=== PATIENT | female | born 1990 | race Caucasian/White ===

== ENCOUNTER 2018-03-07 11:10 | Outpatient (CLI) | payer MEDICAID, SELFPAY ==
--- NOTE | 2018-03-07 10:02 | DI.RAD_ITS ---
SYMPTOM/DIAGNOSIS: RECURRENT PAIN RT SIDE, NO TRAUMA, M25.531 RIGHT WRIST: Three views. The bones are normally mineralized. The articular surfaces are well maintained. The soft tissues are unremarkable. IMPRESSION: Negative right wrist.
== END 2018-03-07 11:30 ==
PROVIDERS: PCP Family Medicine; Visit Provider Family Medicine
DX: M25.531 Pain in right wrist (principal)
CPT/HCPCS: 73110

== ENCOUNTER 2018-04-08 13:00 | Emergency (ER) | payer MEDICAID, SELFPAY ==
[2018-04-08 13:31] VITALS: BP 136/87; PULSE 97; RESP 16; TEMP 36.4; O2SAT 97
--- NOTE | 2018-04-08 15:01 | DI.RAD_ITS ---
SYMPTOMS/DIAGNOSIS: RIGHT WRIST PAIN AND REDUCED RANGE OF MOTION X 1 MONTH, NO TRAUMA RIGHT WRIST: Three views. No acute bone or joint abnormality identified. The articular surfaces are well maintained. The soft tissues are unremarkable. IMPRESSION: No acute abnormality.
--- NOTE | 2018-04-08 15:03 | ED.GENADUL_ITS ---
Discharge Plan Disposition Patient Disposition: HOME Condition: Stable Discharge Details Chief Complaint: Orthopedic Clinical Impression: Right wrist pain Primary Care Provider: Nasrin Damian ED Provider: Nazanin Moreira Home Meds and New Rx's Prescriptions: Continued nabumetone 750 mg tablet 750 mg PO BID Qty: 60 RF: 2 cannabidiol (CBD) extract 100 mg/mL solution PO RF: 0 Latuda 20 MG tablet 20 mg PO DAILY RF: 0 melatonin 10 mg tablet, sublingual 10 mg PO HS Qty: 90 RF: 3 prazosin 1 mg capsule 1 mg PO DAILY RF: 0 Discharge Instructions Instructions: Arthralgia (ED) Additional Instructions: Please return immediately to the emergency department if you develop any new or worsening symptoms or if you become otherwise concerned. It is extremely important that you make an appointment to be seen by an orthopedic doctor and also by your primary care doctor within the next 1-2 weeks in follow-up for this visit. Referrals: Nasrin Damian MD [Primary Care Provider] - Cody Colin MD [ [facility] STAFF PHYSICIAN] - Discharge Data Discharge Date/Time-TO BE ENTERED AT DEPARTURE: 04/08/18 16:32 Medical Decision Making Melanie Byrne is a 27 y/o woman with h/o anxiety, depression presenting to the emergency department with right wrist pain worse with movement with no skin changes no known trauma, has been on-going for 2 months. Saw PCP for same, had plain films 02/20 that were negative. Now with worsening pain. On exam no skin changes, extension of wrist preserved, right hand NVI. No other joint involve ment. Doubt acute bony process, but possible pathologic fx, arthritis, rheumatologic process. Exam/hx not c/w septic joint, acute emergent infection, other acute life/limb threatening process. Will obtain plain film. xray okay. Pt placed on ortho list for f/u. Pt reports that she has multiple wrist splints at home, counseled Pt on appropriate use of splints. Lengthy discussion with Pt and her mother re: RTED precautions and importance of outpt f/u with ortho, PCP. Pt verbalizes understanding and is amenable to the plan. Medical Records Medical records reviewed: Yes I reviewed the patient's medical records. Imaging Data Radiologic Study: Attestation: I personally reviewed and interpreted this imaging study as follows: Radiologist's impression: RIGHT WRIST: Three views. No acute bone or joint abnormality identified. The articular surfaces are well maintained. The soft tissues are unremarkable. IMPRESSION: No acute abnormality. HPI General Mode of arrival: ambulatory . Date/Time Provider Initiated Documentation: 04/08/18 15:01 . Limitations to Documentation: no limitations . Information obtained by: patient, family, RN notes reviewed and old records reviewed . HPI Narrative: Melanie Byrne is a 27 y/o woman with history of IV drug use in the past presenting to the emergency department with right-sided wrist pain. Patient reports that over the past month she has had progressive pain of the ulnar aspect of her right wrist. She saw her PCP for this and had x-rays taken of the wrist and forearm on 03/07/18 that were negative for abnormal ity. Patient reports that pain has been gradually increasing, and she has gradually had a decrease in ability to flex and extend the wrist. She denies any other pain. She denies numbness/tingling/weakness of the wrist. She feels otherwise in her usual state of health without other symptoms. There is no rash. No recent travel. No skin wound or trauma to the area that she recalls. H/o intranasal drug use in the past, denies any IV drug use. Related Data Home Medications Medication Instructions Recorded Confirmed Latuda 20 mg PO DAILY 08/02/17 04/08/18 melatonin 10 mg sublingual tablet 10 mg PO HS #90 tab-cap 12/22/17 04/08/18 prazosin 1 mg capsule 1 mg PO DAILY tab-cap 12/22/17 04/08/18 nabumetone 750 mg tablet 750 mg PO BID #60 tab 03/07/18 03/23/18 cannabidiol (CBD) 100 mg/mL oral mg PO ml 03/14/18 03/23/18 solution Previous Rx's Medication Instructions Recorded nabumetone 750 mg tablet 750 mg PO BID #60 tab 03/07/18 Allergies Allergy/AdvReac Type Severity Reaction Status Date / Time No Known Allergies Allergy Unverified 04/08/18 13:36 General Stated Complaint: Orthopedic ARGELIA: 4 Review of Systems Review of Systems Constitutional: denies fevers Eyes: denies eye pain ENT: denies facial pain, dental pain, sore throat Cardiovascular: denies chest pain, edema Respiratory: denies SOB, cough GI: denies abdominal pain, vomiting, diarrhea : denies flank pain MSK: denies back pain, neck pain, myalgias, reports right wrist pain Skin: denies rash Neuro: denies headaches, numbness, tingling, weakness PFSH Surgical History Tonsillectomy and adenoidectomy (~2000) Family History Mother Depression Father Substance abuse Depression Sister Depression Sister No problems noted. Sister Depression Asthma Sister No problems noted. Brother Substance abuse Depression Brother Substance abuse Depression Brother No problems noted. Family History Diabetes Essential hypertension Neoplasm Stroke Sister No problems noted. Social History household members: other details: SELF current occupational status: unemployed pets and animals: Yes ([employer] SU[employer]G) pets and animals: dog(s) frequency: daily duration: 15-30 minutes/day Smoking/Tobacco Use Status: Never alcohol intake: current alcohol intake frequency: a few times a week substance use type: does not use special tesha needs: No Exam Narrative Exam Narrative: Constitutional: well and [id number], pleasant, conversing normally HENT: head atraumatic, normocephalic normal inspection, mucous membranes moist Eyes: conjunctiva normal, sclera normal, pupils 3mm b/l Neck: no stridor, normal ROM, trachea midline Resp: normal work of breathing, LCTAB Cardio: normal rate, normal rhythm, no murmur appreciated Skin: warm, dry, normal color, no rash Neuro: alert, not altered, grossly non-focal, normal tone Ext: no edema, tenderness along ulnar aspect of right wrist, able to extend wrist but flexion limited 2/2 pain, no overlying skin changes, FROM of digits, right elbow, right forearm NTTP. No motor or sensory deficit. radial pulses intact and symmetric. Psych: normal mood, normal affect, normal behavior Course Vital Signs Temperature 36.4 C L 04/08/18 13:31 Pulse 97 H 04/08/18 13:31 Respiratory Rate 16 04/08/18 13:31 Blood Pressure 136/87 04/08/18 13:31 Pulse Oximetry 97 04/08/18 13:31 Temperature 36.4 C L 04/08/18 13:31 Temperature Source Temporal Artery Scan 04/08/18 13:31 Pulse 97 H 04/08/18 13:31 Respiratory Rate 16 04/08/18 13:31 Respiratory Effort Non-Labored 04/08/18 13:35 Blood Pressure 136/87 04/08/18 13:31 Blood Pressure Position Sitting 04/08/18 13:31 Pulse Oximetry 97 04/08/18 13:31 Oxygen Delivery Method Room Air 04/08/18 13:31 Oxygen Flow Rate 0 04/08/18 13:31 Pain Level 6 04/08/18 13:31
[2018-04-08 16:29] VITALS: TEMP 36.6
== END 2018-04-08 16:32 | disposition home or self-care (01) ==
PROVIDERS: Emergency Provider Student in an Organized Health Care Education/Training Program; PCP Family Medicine
DX: M25.531 Pain in right wrist (principal)
CPT/HCPCS: 99283; 73110; 99282

== ENCOUNTER 2018-06-01 10:04 | Outpatient (CLI) | payer MEDICAID, SELFPAY ==
--- NOTE | 2018-06-01 11:10 | W.PREOPHP ---
Assessment and Plan (1) Right wrist pain: Current visit: Yes Status: Acute Plan: Reviewed surgery including surgical technique, recovery, benefits and risks including but not limited to risk of infection, blood clot, damage to soft tissue/nerve/blood vessels with patient and her mother in detail. After discussion patient understands risks and verbally consents to proceeding with surgery. Patient and her mother had opportunity to have questions answered to their satisfaction. Educated patient to remove oral and facial piercings prior to day of surgery. Although patient reports she has been in recovery for the last 2-1/2 years she does have history of heroin abuse (denies intravenous drug abuse) and has concerns regarding postoperative medications. Due to patient's history recommend non-narcotics postoperatively. Patient will contact office if issues arise, she will be scheduled for excisional biopsy of right pisiform bone with Dr. Lux on 06/08/18. History of Present Illness Narrative: Melanie is a 27-year-old [id number] female with her mother, Farheen, who presents clinic for scheduled excisional biopsy of the right pisiform bone with Dr. Lux on 06/08/18. Patient reports long-standing history of right palmar pain predominantly along the ulnar aspect of her palm that has been episodic since patient was in high school. Patient reports in high school she would have episodes of acute pain lasting for several days and would eventually improve. She previously had been diagnosed with tendinitis and fitted with splints which only aggravated her right palmar pain. 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 Pain is aggravated by typing, writing, holding her phone and lifting objects such as a drinking glass. Patient reports pain is severely aggravated when applying direct pressure with her right hand such as when attempting to stand up from a chair. In the past patient has tried naproxen and wrist splints without significant relief. She has previously attended orthopedic clinic and reviewed her MRI with Dr. Lux on 05/19/18 which as per his notes stated MRI showed pathology involving the pisiform bone - pathologist felt could changes could be inflammatory but could not rule out neoplasm. Dr. 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 Due to MRI findings and patient's continued atraumatic wrist pain since the age of 17 she was offered excisional biopsy of the right pisiform bone. Patient denies known injury to her right hand or wrist. She denies symptoms of numbness or tingling. Pertinent Surgical Information Patient has previous history of heroin abuse but states has been in recovery for the past 2-1/2 years. Patient reports while using heroin she did not engage in intravenous drug use. Denies any current drug use including heroin, methamphetamines, cocaine and marijuana. Denies past medical history of: Hypertension, stroke, cardiac issues, angina, asthma, COPD, sleep apnea, renal issues, liver issues, hepatitis, gastrointestinal issues, ulcers, hyperlipidemia, bleeding disorders, seizures, migraines, diabetes, autoimmune disorders, thyroid issues Denies prior complications from surgery or anesthesia. Review of Systems Constitutional Denies fever(s), Denies frequent falls and Denies headache(s) Eyes Denies change in vision ENT Denies dizziness, Denies ear discharge, Denies headache(s), Denies epistaxis, Denies nasal congestion, Reports nasal discharge (clear nasal discharge that is improving), Denies nose pain and Denies sore throat Cardiovascular Denies chest pain, Denies rapid heart rate, Denies irregular heart rhythm, Reports dyspnea (with anxiety attacks), Denies dyspnea on exertion, Denies orthopnea, Denies paroxysmal nocturnal dyspnea and Denies slow heart rate Respiratory Denies cough, Denies excessive phlegm production, Reports dyspnea (with anxiety attacks), Denies dyspnea on exertion and Denies wheezing Gastrointestinal Denies abdominal pain, Denies melena, Denies hematochezia, Denies constipation, Denies diarrhea, Denies nausea and Denies vomiting Genitourinary Denies hematuria, Denies dysuria and Denies urinary urgency Musculoskeletal Reports as per HPI, Denies numbness and Denies tingling Neurologic Denies dizziness, Denies frequent falls, Denies headache(s), Denies numbness and Denies tingling Allergic/Immunologic Denies wheezing [facility] Medical History Right wrist pain (Acute) Pseudopapilledema (Acute) Unspecified visual disturbance (Acute) History of heroin abuse (Acute) Depression (Acute) Anxiety (Acute) Surgical History Tonsillectomy and adenoidectomy (~2000) Family History Mother Depression Father Substance abuse Depression Sister Depression Sister No problems noted. Sister Depression Asthma Sister No problems noted. Brother Substance abuse Depression Brother Substance abuse Depression Brother No problems noted. Family History Diabetes Essential hypertension Neoplasm Stroke Sister No problems noted. Social History household members: other details: SELF marital status: SINGLE highest education level completed: high school graduate current occupational status: unemployed pets and animals: Yes ([employer]) pets and animals: dog(s) frequency: daily duration: 15-30 minutes/day Smoking and Tabacco status: Never alcohol intake: current alcohol intake frequency: a few times a week Alcohol type: beer substance use type: does not use and former substance user special tesha needs: No Female Reproductive History Menstrual control method: none Meds Home Medications Medication Instructions Recorded Confirmed Type Latuda 20 mg PO HS 08/02/17 06/01/18 History melatonin 10 mg sublingual tablet 10 mg PO HS #90 tab-cap 12/22/17 06/01/18 History prazosin 1 mg capsule 1 mg PO HS tab-cap 12/22/17 06/01/18 History cannabidiol (CBD) 100 mg/mL oral mg PO HS ml 03/14/18 05/19/18 History solution Allergies Allergy/AdvReac Type Severity Reaction Status Date / Time No Known Allergies Allergy Unverified 06/01/18 12:32 Exam Const General: cooperative and no acute distress HENMT Head: normal to inspection, normocephalic and atraumatic Ears: external ears normal General nose exam: external nose normal and no nasal discharge Face and sinus: face symmetric Mouth: oral mucosae normal, lip normal (Piercing in place), tongue normal (Piercing in place) and moist mucous membranes Teeth and gingiva: dentition normal Throat: posterior oropharynx normal Eyes General: appearance normal, both eyes and all related structures Pupils: PERRL EOM: EOM intact bilaterally Resp Effort & Inspection: normal respiratory effort and able to speak in complete sentences Auscultation: clear to auscultation bilaterally, no rales, no rhonchi and no wheezes Cardio Heart Sounds: S1 normal, S2 normal and no murmurs Pulses: radial pulses present bilaterally Skin General skin exam: no rashes or lesions noted Extrem Other: Right hand examination: Skin is intact without areas of edema, erythema or calor. No signs of rashes or lesions are noted. Sensation to light touch is intact. Capillary refill was unable to be conducted due to nail icelandic. Tutu's test was negative for prolonged refill. Tenderness to palpation over pisiform. Active range of motion in palmar flexion was intact except for restricted dorsiflexion to neutral which elicits pain on the ulnar aspect of patient's wrist extending into her hand.
== END 2018-06-01 10:24 ==
PROVIDERS: PCP Family Medicine; Visit Provider Orthopaedic Surgery
DX: M25.531 Pain in right wrist (principal); Z01.818 Encounter for other preprocedural examination
CPT/HCPCS: NC

== ENCOUNTER 2018-06-08 11:14 | Day surgery (SDC) | payer MEDICAID, SELFPAY ==
[2018-06-08 11:37] VITALS: BP 128/88; PULSE 94; RESP 18; TEMP 37; O2SAT 98
[2018-06-08] MEDS: Lactated Ringers 1,000 ML 80 ML IV (12:10)
--- NOTE | 2018-06-08 13:43 | BONE_PTH ---
PATIENT: Melanie Donahue LOC: [facility] U#:[id number] AGE/SX: 27/F ROOM: RE06/08/[address]: Kennedy Lux MD : 1990 BED: DIS: 06/08/2018 SPEC #: [id number] RECD: 06/08/18 17:25 STATUS: HALINA DICKERSON #: [id number] JOSE LUIS: 06/08/18 13:[address]: Kennedy Lux DEPT: Surgical Specimen RECD BY: Nola Solo ENTERED: 06/08/18 17:26 SP TYPE: Bone OTHR DR: Nasrin Damian MD Tissues: 1 - BONE BX/CURRETTE NOT PATH FRACTURE Procedures: GROSS AND MICRO LEVEL 3 DECALCIFICATION Comments: [id number]
--- NOTE | 2018-06-08 14:05 | PDOC.DSDIS_ITS ---
Discharge Plan Disposition Patient Disposition: HOME Condition: Good Discharge Details Reason For Visit: Excision R pisiform bone Attending Provider: Kennedy Lux Primary Care Provider: Nasrin Damian Home Meds and New Rx's Prescriptions: No Action cannabidiol (CBD) extract 100 mg/mL solution PO HS RF: 0 Latuda 20 MG tablet 20 mg PO HS RF: 0 melatonin 10 mg tablet, sublingual 10 mg PO HS Qty: 90 RF: 3 prazosin 1 mg capsule 1 mg PO HS RF: 0 Discharge Instructions Additional Instructions: Elevate R wrist above heart level as much as possible over next 48 hours. Wiggle fingers R hand 10 times/hour when awake to prevent swelling. Keep dressings and splint dry and intact until return. Cover with plastic bag sealed with large rubber band below elbow to shower. Follow up in 's office in one week. Take ibuprofen 800 mg every 6 hours , if needed, for pain. Referrals: Kennedy Lux MD [ [facility] STAFF PHYSICIAN] - (f/u in 1 week) Equipment/Supplies: Splint Activity:: Activity as Tolerated Remove Dressings/Wound Care:: Do Not Remove Shower/Bathe:: Cover Diet:: As Tolerated Discharge Orders Discharge Orders: Discharge Order (Routine); Ordered 06/08/18 Ordered By: Kennedy Lux DS: Diagnosis Discharge Diagnosis (1) Right wrist pain: Status: Acute
[2018-06-08 14:18] VITALS: BP 127/71; PULSE 95; RESP 18; TEMP 37.2; O2SAT 93
--- NOTE | 2018-06-08 14:20 | W.PM.DSUDISC ---
Discharge Plan Disposition Patient Disposition: HOME Condition: Good Discharge Details Reason For Visit: Excision R pisiform bone Attending Provider: Kennedy Lux Primary Care Provider: Nasrin Damian Home Meds and New Rx's Prescriptions: New ibuprofen 800 mg tablet 800 mg PO QID PRN (Reason: pain) Qty: 20 RF: 0 No Action cannabidiol (CBD) extract 100 mg/mL solution PO HS RF: 0 Latuda 20 MG tablet 20 mg PO HS RF: 0 melatonin 10 mg tablet, sublingual 10 mg PO HS Qty: 90 RF: 3 prazosin 1 mg capsule 1 mg PO HS RF: 0 Discharge Instructions Additional Instructions: Elevate R wrist above heart level as much as possible over next 48 hours. Wiggle fingers R hand 10 times/hour when awake to prevent swelling. Keep dressings and splint dry and intact until return. Cover with plastic bag sealed with large rubber band below elbow to shower. Follow up in 's office in one week. Take ibuprofen 800 mg every 6 hours , if needed, for pain. Stand Alone Forms: DSU Post op Instructions, Lyndsey Piña ([facility]) Referrals: Kennedy Lux MD [ [facility] STAFF PHYSICIAN] - (f/u in 1 week) Equipment/Supplies: Splint Activity:: Activity as Tolerated Remove Dressings/Wound Care:: Do Not Remove Shower/Bathe:: Cover Diet:: As Tolerated Discharge Orders Discharge Orders: Discharge Order (Routine); Ordered 06/08/18 Ordered By: Kennedy Lux
[2018-06-08 14:23] VITALS: BP 139/73; PULSE 90; RESP 16; TEMP 37.2; O2SAT 95
--- NOTE | 2018-06-08 14:23 | PDOC.DSDIS_ITS ---
Discharge Plan Disposition Patient Disposition: HOME Condition: Good Discharge Details Reason For Visit: Excision R pisiform bone Attending Provider: Kennedy Lux Primary Care Provider: Nasrin Damian Home Meds and New Rx's Prescriptions: New ibuprofen 800 mg tablet 800 mg PO QID PRN (Reason: pain) Qty: 20 RF: 0 No Action cannabidiol (CBD) extract 100 mg/mL solution PO HS RF: 0 Latuda 20 MG tablet 20 mg PO HS RF: 0 melatonin 10 mg tablet, sublingual 10 mg PO HS Qty: 90 RF: 3 prazosin 1 mg capsule 1 mg PO HS RF: 0 Discharge Instructions Additional Instructions: Elevate R wrist above heart level as much as possible over next 48 hours. Wiggle fingers R hand 10 times/hour when awake to prevent swelling. Keep dressings and splint dry and intact until return. Cover with plastic bag sealed with large rubber band below elbow to shower. Follow up in 's office in one week. Take ibuprofen 800 mg every 6 hours , if needed, for pain. Stand Alone Forms: DSU Post op Instructions, Lyndsey Piña ([facility]) Referrals: Kennedy Lux MD [ [facility] STAFF PHYSICIAN] - (f/u in 1 week) Equipment/Supplies: Splint Activity:: Activity as Tolerated Remove Dressings/Wound Care:: Do Not Remove Shower/Bathe:: Cover Diet:: As Tolerated Discharge Orders Discharge Orders: Discharge Order (Routine); Ordered 06/08/18 Ordered By: Kennedy Lux
[2018-06-08 14:28] VITALS: BP 132/74; PULSE 87; RESP 17; TEMP 37.2; O2SAT 94
[2018-06-08 14:43] VITALS: BP 136/82; PULSE 91; RESP 19; TEMP 37.2; O2SAT 95
[2018-06-08 15:37] VITALS: BP 137/83; PULSE 87; RESP 18; TEMP 37.1; O2SAT 97
--- NOTE | 2018-06-08 19:49 | ROE_ITS ---
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 POSTOPERATIVE DIAGNOSIS: Same. PROCEDURE: Excision of the right pisiform bone with biopsy of wrist synovium. SURGEON: Kennedy Lux M.D. ANESTHESIA: General, Lily Sandoval CRNA INDICATIONS: This is a 27-year-old white female who has a several-year history of right volar wrist pain. This pain had become exacerbated over the last several months. This interferes with her day-t o-day activities and work. The pain seemed to be located directly over the pisiform bone. Plain x-r ays were unremarkable. Further evaluation with MRI revealed an abnormality involving the pisiform rubin ne. There was increased signal in the pisiform bone, with a question of abnormal tissue between the pisiform and triquetrum. Question of a malignancy could not be answered with the MRI. At this point , excisional biopsy of the pisiform bone as well as any adjacent abnormal tissue was recommended to a lleviate her pain and get a clear diagnosis of the cause of her pain. The risks and complications of the procedure were explained to the patient in detail preoperatively. PROCEDURE: The patient was taken to the Operating Room on 06/08/18. She was placed supine on the oper ating table and a general anesthetic was administered. A proximal tourniquet was applied to the righ t upper arm and the right hand, wrist, and forearm were prepped and draped free in the usual sterile fashion. An incision was made in the palm beginning at the distal edge of the volar carpal ligament and curving around the base of the hypothenar eminence. It was carried across the flexor creases of the wrist in a zigzag fashion and extended proximally along the line of the flexor carpi ulnaris tend on for a distance of about 2 inches proximal to the flexion creases of the wrist. The incision was c arried down to the flexor carpi ulnaris tendon. An incision was made in the fascia on the radial nakia e of the flexor carpi ulnaris tendon. The ulnar nerve and artery were identified and protected by re tracting them radially. Dissection then proceeded distally to Guyon's canal. The roof of Guyon's ca nal was transected and the flexor carpi ulnaris tendon was then rotated ulnarward. The pisiform bone was shelled out from the tendon and sent for pathological examination. Between the pisiform and the triquetrum there appeared to be some abnormal synovium present. It certainly did not look like a ma lignancy. The synovium was then removed with a rongeur until only normal tissue remained. There was a small hole, maybe 4 mm in diameter, in the volar capsule of the wrist over the triquetrum. The ar ticular cartilage on the triquetrum looked undamaged. The wound was irrigated with saline solution. All bleeders were cauterized. The wound margins were infiltrated with 0.5% Marcaine with epinephrine solution and an ulnar nerve bl ock was performed with 0.5% Marcaine with epinephrine solution for postoperative analgesia. I sewed the fascia to the flexor carpi ulnaris tendon proximal to the wrist with a few interrupted #2-0 Vicry l sutures. The subcu was approximated with a few interrupted #3-0 Vicryl sutures and then the skin e dges were approximated without tension using near-far far-near sutures of interrupted #3-0 nylon sutu re material. The wound was dressed with Xeroform gauze, sterile gauze 4x4s, wrapped with a 4-inch Ke rlix bandage, and then wrapped with an Rafy bandage. A commercial cockup wrist splint was applied ove r the dressings. The tourniquet was released. There was no breakthrough bleeding to the dressings. The patient's anesthesia was reversed without complications. She was discharged to the [facility] in good condition. The patient was discharged home from the Day Surgery Unit when fully recovered from her general anest hesia. She was given instructions to elevate her right wrist above heart level as much as possible f or the next 48 hours. She is encouraged to flex and extend her fingers of her right hand 10 times an hour while awake to prevent swelling and stiffness. She is to keep the dressings and splint intact and dry until she follows up in my office in one week for a dressing change and wound check. She melba l take ibuprofen 800 mg p.o. q.6h. p.r.n. for pain.
== END 2018-06-08 16:12 | disposition home or self-care (01) ==
PROVIDERS: PCP Family Medicine; Visit Provider Orthopaedic Surgery
PROC: (CPT 25210; principal; 2018-06-08 13:30)
DX: M25.531 Pain in right wrist (principal); M65.9 Synovitis and tenosynovitis, unspecified
CPT/HCPCS: 25210; 81025; 88304; 88311; J0131; J0690; J1100; J1885; J2250; J2405; L3908

== ENCOUNTER 2019-04-17 11:19 | Outpatient (CLI) | payer MEDICAID, SELFPAY ==
[2019-04-17 12:54] LABS: TSH (W/Ref FT4) 1.48 uIU/mL (0.36-3.74)
[2019-04-19 15:03] LABS: Testosterone, Free 0.68 ng/dL (0.06-1.06); Testosterone, Total 40 ng/dL (8-60)
[2019-04-19 16:29] LABS: Antimullerian Hormone 5.8 ng/mL (0.9-9.5)
[2019-04-20 14:20] LABS: Dehydroepiandrosterone (DHEA) 3.9 ng/mL (<13)
== END 2019-04-17 11:39 ==
PROVIDERS: PCP Family Medicine; Visit Provider Nurse Practitioner Women's Health
DX: N92.6 Irregular menstruation, unspecified (principal); Z31.69 Encounter for other general counseling and advice on procreation
CPT/HCPCS: 36415; 84402; 84403; 82626; 83520; 84443

== ENCOUNTER 2020-08-20 01:58 | Outpatient (CLI) | payer MEDICAID, SELFPAY ==
--- NOTE | 2020-08-20 06:30 | DI.US_ITS ---
Exam(s) US PELVIS TRANSVAGINAL EXAM: US PELVIS TRANSVAGINAL CLINICAL HISTORY: infertility,IRREGULAR MENSES,N92.6 TECHNIQUE: Transabdominal and transvaginal imaging was performed using standard protocol. COMPARISON: No exams were available for comparison FINDINGS: KIDNEYS: Kidneys are symmetric in size. No evidence of renal calculi. No evidence of hydronephrosis. No renal mass or cyst identified. UTERUS: Anteverted. 8.0 x 4.9 x 5.4 cm. Endometrium: 9 millimeters, homogeneous. Myometrium: Unremarkable. Cervix: Unremarkable. OVARIES: Right: Cyst or mass: None. Left: Cyst or mass: 2.3 centimeter corpus luteum cyst. DOPPLER: Color: Symmetric and uniform flow to both ovaries. No hyperemia. Duplex: Normal ovarian arterial waveforms visualized. CUL-DE-SAC: Free fluid: Mild amount free fluid in the cul-de-sac, likely physiologic.. IMPRESSION: 1. Normal-appearing uterus with endometrial stripe within normal limits. 2. Unremarkable bilateral ovaries. DATA REPOSITORY:
== END 2020-08-20 02:18 ==
PROVIDERS: PCP Family Medicine; Visit Provider Nurse Practitioner Women's Health
DX: N92.5 Other specified irregular menstruation (principal); E28.8 Other ovarian dysfunction
CPT/HCPCS: 76830; 76856

== ENCOUNTER 2024-08-25 01:34 | Outpatient (CLI) | payer SELFPAY ==
[2024-08-25 11:09] LABS: HCG Quant, Pregnancy 102 mIU/mL (1-3)
== END 2024-08-25 01:35 | disposition home or self-care (01) ==
PROVIDERS: Visit Provider Obstetrics & Gynecology Reproductive Endocrinology
DX: Z3A.01 Less than 8 weeks gestation of pregnancy (principal)
CPT/HCPCS: 36415; 84702

== ENCOUNTER 2024-08-29 10:47 | Outpatient (CLI) | payer SELFPAY ==
[2024-08-29 10:04] LABS: HCG Quant, Pregnancy 440 mIU/mL (1-3)
== END 2024-08-29 10:48 | disposition home or self-care (01) ==
LOC: LBO 10:48
PROVIDERS: Visit Provider Obstetrics & Gynecology Reproductive Endocrinology
DX: Z3A.01 Less than 8 weeks gestation of pregnancy (principal)
CPT/HCPCS: 36415; 84702

== ENCOUNTER 2024-10-16 12:31 | Outpatient (CLI) | payer MEDICAID, SELFPAY | END 2024-10-16 12:32 | disposition home or self-care (01) | LOC: LBO 12:32 | PROVIDERS: Visit Provider Registered Nurse Maternal Newborn | DX: Z34.81 Encounter for supervision of other normal pregnancy, first trimester (principal) | CPT/HCPCS: 36415 ==

== ENCOUNTER 2024-11-13 10:09 | Outpatient (REF) | payer MEDICAID, SELFPAY ==
[2024-11-13 11:45] LABS: Cannabinoids THC Negative (Negative); METHADONE URINE SCREEN Negative (Negative)
[2024-11-14 12:00] LABS: Fentanyl Scr w/Rfx Confirm Negative ng/mL (<1)
== END 2024-11-13 10:10 | disposition home or self-care (01) ==
LOC: LBN 10:09
PROVIDERS: Visit Provider Advanced Practice Midwife
DX: Z34.91 Encounter for supervision of normal pregnancy, unspecified, first trimester (principal)
CPT/HCPCS: 80307; 80348

== ENCOUNTER 2024-11-13 12:11 | Outpatient (CLI) | payer MEDICAID, SELFPAY | END 2024-11-13 12:12 | disposition home or self-care (01) | LOC: LBO 12:12 | PROVIDERS: Visit Provider Advanced Practice Midwife | DX: Z34.91 Encounter for supervision of normal pregnancy, unspecified, first trimester (principal) | CPT/HCPCS: 86787; 86850; 86900; 86901 ==

== ENCOUNTER 2024-12-08 08:55 | Outpatient (CLI) | payer MEDICAID, SELFPAY ==
--- NOTE | 2024-12-08 | DI.US_ITS ---
Exam(s) US OB F/U FACIAL/LVOT/RVOT EXAM: US OB F/U FACIAL/LVOT/RVOT CLINICAL HISTORY: maternal fall. COMPARISON: No exams were available for comparison TECHNIQUE: Transabdominal obstetrical ultrasound performed. FINDINGS: Sonographic images demonstrate a single intrauterine gestation. Heart Rate: 144bpm Number of fetuses: 1 position: VARIED Placental location: POSTERIOR No evidence of previa. No evidence of placental abruption. Focal area of contraction of anterior uterus noted. Amniotic fluid: Amount of fluid is visually within normal limits. IMPRESSION: Posterior placenta. No evidence of placental abruption. DATA REPOSITORY:
[2024-12-08 10:07] VITALS: BP 134/77; PULSE 80; RESP 14; TEMP 37.2
--- NOTE | 2024-12-08 14:08 | PGE_ITS ---
Date of Service Date of service: 12/08/24 Time of Service: 12:30 Assessment and Plan Assessment and plan (1) Fall: Status: Acute Assessment and plan: A: 34 yo Gs P1001 @ 19 weeks >12 hrs since pt fell, no direct impact to abd, no pain, no bleeding Pt anxious about not feeling FM, FHT 144 per doptone, 19 wks EGA To DI for placental imaging, is posterior without evidence of injury Rh positive blood type P: recent fall without abdominal trauma at 19 wks , maternal obesity wellbeing verified. LEvel 2 ultrasound @ [facility] [place] next week. keep scheduled appt and f/up prn with OB Provider Subjective Subjective Interval history since last seen: Tripped over her dog last night and fell, landed on right hip and side, banged her head on the wall, tried to catch herself with right arm which is bit sore today. No direct impact to front of abdomen, no bleeding, no pain, but is concerned about lack of movement. Denies changes to vision, headache or any soreness or swelling on head/forehead. Exam Resp Effort & Inspection: normal respiratory effort and able to speak in complete sentences Cardio Rate: regular rate Rhythm: regular rhythm GI Inspection: large pannus and obesity Palpation: soft Other: Gravid abdomen, FHT 140's Skin General skin exam: no rashes or lesions noted and elasticity normal Extrem General: normal to inspection, full ROM and normal gait Psych Mood: congruent mood Affect: normal affect Attitude: cooperative Thought Process: normal Objective Last Vital Signs Temp 99.0 F 12/08/24 10:07 Pulse 80 12/08/24 10:07 Resp 14 12/08/24 10:07 BP 134/77 12/08/24 10:07 Reviewed Pertinent PMH: Yes PAWSS Pt Consumed Any Amount of Alcohol Within the Last 30 days OR had positive BALBIR Upon Admission: No Time Spent with Patient Time Spent with Patient: 25-34 minutes Time was spent: preparing to see the patient(eg.review tests), obtaining and/or reviewing separately otained hiistory, ordering medications,tests, procedures, indepentently interpreting results and counseling the patient
== END 2024-12-08 12:30 | disposition other institution (70) ==
LOC: BCD 08:59 → OBS 09:59
PROVIDERS: Visit Provider Advanced Practice Midwife
DX: W19.XXXA Unspecified fall, initial encounter (principal); O36.8131 Decreased fetal movements, third trimester, fetus 1; Z3A.19 19 weeks gestation of pregnancy
CPT/HCPCS: 76815; G0378

== ENCOUNTER 2025-02-02 09:10 | Outpatient (CLI) | payer MEDICAID, SELFPAY ==
--- NOTE | 2025-02-02 | DI.US_ITS ---
Exam(s) US OB WILBER WEIGHT EXAM: US OB WILBER WEIGHT CLINICAL HISTORY: decreased movement. TECHNIQUE: Transabdominal obstetrical ultrasound was performed. COMPARISON: US US OB F/U FACIAL/LVOT/RVOT from 12/08/2024 FINDINGS: There is a single viable intrauterine gestation with cardiac activity identified-146 bpm The fetus is presently in breech position with spine pointing anteriorly.. Amniotic fluid: There is a normal amount of amniotic fluid with an WILBER of 16.2cm. Placental location: The placenta is posterior grade 2,with no evidence of placenta previa.No evidence of abruption. Dating parameters place this at approximately 27 weeks gestational age, implying YOSEPH of 05/04/2025. BPD measures 26 weeks and 2 days HC measures 27 weeks and 1 day AC measures 27 weeks and 2 days FL measures 27 weeks and 1 day Estimated weight is 1041 gm-2 pounds 5 ounces Fetus is at the 46th percentile on the Hadlock scale. anatomy: Not performed IMPRESSION:: Viable intrauterine gestation, as described above. Apparently there is a recently documented velamentous umbilical cord insertion which has been previously documented at [facility]. DATA REPOSITORY:
--- NOTE | 2025-02-02 11:30 | NUR.NOTE ---
Nursing Note: Pt came in for decreased movement. Reports being told she has a velamentous cord insertion and baby has been moving less which make pt very concerned. NST approved by [facility]. Very active fetus. OB U/S ordered by [facility] and radiology called. Radiology is short staffedtoday but they will call us back in 30mins with a time.
[2025-02-02 11:41] VITALS: BP 131/65; PULSE 91; TEMP 36.3
--- NOTE | 2025-02-02 13:10 | NUR.NOTE ---
Nursing Note:Kenia Warren reviewed the results of the OB Ultrasound and pt was discharged home undelivered ambulatory.
[2025-02-02 16:42] VITALS: BP 131/65; PULSE 91; TEMP 36.3
--- NOTE | 2025-02-02 16:42 | W.OBNST ---
Date of service: 02/02/25 Time of Service: 12:00 NST Evaluation Reason for NST Reasons for Nonstress Test: DECREASED MOVEMENT Gestational Age Gestational Age in Weeks and Days: 27 Weeks and 0Days Test and Monitor Explained Test/Monitor Explained: Test Explained, Monitor Explained and Patient Verbalized Understanding Vital Signs Blood Pressure: 131/65 Pulse: 91 Temperature: 97.3 F Urine Results Urine Protein: Negative Urine Ketones: Positive Urine Glucose: Negative Urine Blood: Negative NST Information Date on Monitor: 02/02/25 Time on Monitor: 10:37 Date off Monitor: 02/02/25 Time off Monitor: 11:20 Total Time on Monitor: 43 NST Interventions: PO Hydration and Reposition Patient NST Evaluation Patient States Movement: Present FHR Baseline: 140 Variability: Moderate 6-25 bpm Accelerations: 15x15 and 10x10 Decelerations: Variable NST Results: Reactive Note Ultrasound Done: N/A. NST Note NST Reviewed and Verified by: Mirtha Hernandez
== END 2025-02-02 13:00 ==
LOC: BCD 09:12
PROVIDERS: Visit Provider Advanced Practice Midwife
DX: O36.8131 Decreased fetal movements, third trimester, fetus 1 (principal); Z3A.27 27 weeks gestation of pregnancy
CPT/HCPCS: 76816; 59025

== ENCOUNTER 2025-02-06 01:24 | Outpatient (CLI) | payer MEDICAID, SELFPAY ==
[2025-02-06 10:54] LABS: HCT 33.5 % (36.0-46.0); HGB 11.0 g/dL (11.2-15.7); MCH 29.0 pg (27.0-33.0); MCHC 32.8 % (32.0-36.0); MCV 88 fL (80-95); MPV 9.2 fL (8.0-11.0); Platelet Count 335 10^3/uL (130-400); RBC 3.79 10^6/uL (3.93-5.22); RDW 14.6 % (11.7-14.6); RDW-SD 47.2 fL; WBC 11.53 10^3/uL (4.4-10.8)
[2025-02-06 11:10] LABS: Glucose,1 Hr (Glucola) 88 mg/dL (80-140)
== END 2025-02-06 01:25 | disposition home or self-care (01) ==
LOC: LBO 01:24
PROVIDERS: Visit Provider Advanced Practice Midwife
DX: Z34.92 Encounter for supervision of normal pregnancy, unspecified, second trimester (principal)
CPT/HCPCS: 36415; 82950; 85027

== ENCOUNTER 2025-02-06 10:05 | Outpatient (REF) | payer MEDICAID, SELFPAY ==
[2025-02-06 12:22] LABS: Cannabinoids THC Negative (Negative)
[2025-02-07 12:10] LABS: Fentanyl Scr w/Rfx Confirm Negative ng/mL (<1)
== END 2025-02-06 10:06 | disposition home or self-care (01) ==
LOC: LBN 10:05
PROVIDERS: Visit Provider Advanced Practice Midwife
DX: Z34.92 Encounter for supervision of normal pregnancy, unspecified, second trimester (principal); F11.11 Opioid abuse, in remission
CPT/HCPCS: 80307; 80348

== ENCOUNTER → 2025-03-05 03:46 | Outpatient (CLI) | payer MEDICAID, SELFPAY ==
--- NOTE | 2025-03-05 06:15 | DI.US_ITS ---
Exam(s) US OB WILBER WEIGHT EXAM: US OB WILBER WEIGHT CLINICAL HISTORY: interval growth,velamentous insertion of umbilical cord,O43.123. TECHNIQUE: Transabdominal obstetrical ultrasound was performed. COMPARISON: US US OB WILBER WEIGHT from 02/02/2025 FINDINGS: There is a single viable intrauterine gestation with cardiac activity identified-127 bpm The fetus is presently in cephalic position with the spine pointing posteriorly. Amniotic fluid: There is a normal amount of amniotic fluid with an WILBER of 16.7cm. Placental location: The placenta is posterior grade 2,with no evidence of placenta previa. Velamentous cord insertion is being followed at outside institution. Dating parameters place this at approximately 31 weeks and 4 days gestational age, implying YOSEPH of 05/03/2025. BPD measures 31 weeks and 4 days HC measures 31 weeks and 0 days AC measures 31 weeks and 3 days FL measures 32 weeks and 2 days Estimated weight is 1809 gm-4 pounds, 0 ounces. Fetus is at the 45th percentile on the Hadlock scale. IMPRESSION:: Viable 3rd trimester gestation, as described above. DATA REPOSITORY:
== END ==
LOC: DI 03:47
PROVIDERS: Visit Provider Advanced Practice Midwife
DX: Z34.93 Encounter for supervision of normal pregnancy, unspecified, third trimester (principal); O43.123 Velamentous insertion of umbilical cord, third trimester; Z68.41 Body mass index [BMI] 40.0-44.9, adult; Z3A.31 31 weeks gestation of pregnancy
CPT/HCPCS: 76816

== ENCOUNTER 2025-03-15 09:45 | Outpatient (CLI) | payer MEDICAID, SELFPAY ==
[2025-03-15 17:26] VITALS: BP 123/74; PULSE 90; TEMP 36.6
[2025-03-15 17:47] VITALS: BP 123/74; PULSE 90; RESP 18; TEMP 36.6
--- NOTE | 2025-03-16 09:30 | W.OBNST ---
Date of service: 03/15/25 Time of Service: 18:00 NST Evaluation Reason for NST Reasons for Nonstress Test: OTHER, SEE COMMENT Reason for NST Other: ROL Gestational Age Gestational Age in Weeks and Days: 32 Weeks and 6Days Test and Monitor Explained Test/Monitor Explained: Test Explained, Monitor Explained and Patient Verbalized Understanding Vital Signs Blood Pressure: 123/74 Pulse: 90 Temperature: 97.9 F Urine Results Urine Protein: Negative Urine Ketones: Negative Urine Glucose: Negative Urine Blood: Negative NST Information Date on Monitor: 03/15/25 Time on Monitor: 17:19 Date off Monitor: 03/15/25 Time off Monitor: 17:49 Total Time on Monitor: 30 Contraction Frequency: 0 NST Evaluation Patient States Movement: Present FHR Baseline: 135 Variability: Moderate 6-25 bpm Accelerations: 15x15 Decelerations: None NST Results: Reactive Note Ultrasound Done: N/A. NST Note NST Reviewed and Verified by: Mirtha Hernandez
[2025-03-16 09:31] VITALS: BP 123/74; PULSE 90; TEMP 36.6
== END 2025-03-15 17:55 ==
LOC: BCD 09:47 → OBS 17:22
PROVIDERS: Visit Provider Advanced Practice Midwife
DX: O47.03 False labor before 37 completed weeks of gestation, third trimester (principal); Z3A.32 32 weeks gestation of pregnancy
CPT/HCPCS: 59025

== ENCOUNTER 2025-03-19 10:15 | Outpatient (CLI) | payer MEDICAID, SELFPAY ==
[2025-03-19 10:32] VITALS: BP 140/72; PULSE 102
[2025-03-19 10:39] VITALS: BP 140/72; PULSE 102
[2025-03-19 11:42] VITALS: BP 140/72; PULSE 102
--- NOTE | 2025-03-19 11:42 | W.OBNST ---
Date of service: 03/19/25 Time of Service: 11:42 NST Evaluation Reason for NST Reasons for Nonstress Test: OTHER, SEE COMMENT Reason for NST Other: cord insertion Gestational Age Gestational Age in Weeks and Days: 33 Weeks and 3Days Test and Monitor Explained Test/Monitor Explained: Test Explained, Monitor Explained and Patient Verbalized Understanding Vital Signs Blood Pressure: 140/72 Pulse: 102 Urine Results Urine Protein: Negative Urine Ketones: Negative Urine Glucose: Negative Urine Blood: Negative NST Information Date on Monitor: 03/19/25 Time on Monitor: 10:38 Date off Monitor: 03/19/25 Time off Monitor: 11:07 Total Time on Monitor: 29 NST Interventions: PO Hydration Contraction Frequency: 0 NST Evaluation Patient States Movement: Present FHR Baseline: 135 Variability: Moderate 6-25 bpm Accelerations: 15x15 Decelerations: None NST Results: Reactive Note Ultrasound Done: N/A. NST Note NST Reviewed and Verified by: Mirtha Hernandez
== END 2025-03-19 11:36 ==
LOC: BCD 10:20 → OBS 10:26
PROVIDERS: Visit Provider Advanced Practice Midwife
DX: Z3A.33 33 weeks gestation of pregnancy (principal); O43.123 Velamentous insertion of umbilical cord, third trimester; O36.8131 Decreased fetal movements, third trimester, fetus 1
CPT/HCPCS: 59025

== ENCOUNTER 2025-03-26 07:29 | Outpatient (CLI) | payer MEDICAID, SELFPAY ==
[2025-03-26 11:02] VITALS: BP 128/80; PULSE 89
--- NOTE | 2025-03-26 13:27 | W.OBNST ---
Date of service: 03/26/25 Time of Service: 13:27 NST Evaluation Reason for NST Reasons for Nonstress Test: OTHER, SEE COMMENT Reason for NST Other: ART, velamentous cord insertion Gestational Age Gestational Age in Weeks and Days: 34 Weeks and 3Days Test and Monitor Explained Test/Monitor Explained: Test Explained, Monitor Explained and Patient Verbalized Understanding Vital Signs Blood Pressure: 128/80 Pulse: 89 Urine Results Urine Protein: Positive Urine Ketones: Negative Urine Glucose: Negative Urine Blood: Negative NST Information Date on Monitor: 03/26/25 Time on Monitor: 10:04 Date off Monitor: 03/26/25 Time off Monitor: 10:28 Total Time on Monitor: 24 NST Interventions: None NST Evaluation Patient States Movement: Present FHR Baseline: 135 Variability: Moderate 6-25 bpm Accelerations: 15x15 Decelerations: None NST Results: Reactive Note Ultrasound Done: N/A. NST Note Note: Weekly NST due to velamentous insertion of cord. Reactive NST. US in 1 week with visit and NST NST Reviewed and Verified by: Anusha Miranda
[2025-03-26 13:28] VITALS: BP 128/80; PULSE 89
== END 2025-03-26 10:45 | disposition home health service (06) ==
LOC: BCD 07:32 → OBS 10:03
PROVIDERS: Visit Provider Advanced Practice Midwife
DX: Z3A.34 34 weeks gestation of pregnancy (principal); O43.123 Velamentous insertion of umbilical cord, third trimester; R80.9 Proteinuria, unspecified
CPT/HCPCS: 59025

== ENCOUNTER 2025-04-03 07:57 | Outpatient (CLI) | payer MEDICAID, SELFPAY ==
[2025-04-03 09:31] VITALS: BP 123/71; PULSE 98; TEMP 36.8
[2025-04-03 09:44] VITALS: BP 123/71; PULSE 98
--- NOTE | 2025-04-03 10:39 | W.OBNST ---
Date of service: 04/03/25 Time of Service: 10:39 NST Evaluation Reason for NST Reasons for Nonstress Test: OTHER, SEE COMMENT Reason for NST Other: Velamentous cord insertion Gestational Age Gestational Age in Weeks and Days: 35 Weeks and 4Days Test and Monitor Explained Test/Monitor Explained: Test Explained Vital Signs Blood Pressure: 123/71 Pulse: 98 Temperature: 98.2 F Urine Results Urine Protein: Positive Urine Ketones: Negative Urine Glucose: Negative Urine Blood: Negative NST Information Date on Monitor: 04/03/25 Time on Monitor: 09:36 Date off Monitor: 04/03/25 Time off Monitor: 10:15 Total Time on Monitor: 39 NST Interventions: PO Hydration Contraction Frequency: 12-17 NST Evaluation Patient States Movement: Present FHR Baseline: 125 Variability: Moderate 6-25 bpm Accelerations: 15x15 Decelerations: None NST Results: Reactive Note Ultrasound Done: N/A. NST Note NST Reviewed and Verified by: Mirtha Hernandez
[2025-04-03 10:40] VITALS: BP 123/71; PULSE 98; TEMP 36.8
== END 2025-04-03 10:35 ==
LOC: BCD 07:57 → OBS 09:29
PROVIDERS: Visit Provider Advanced Practice Midwife
DX: O43.123 Velamentous insertion of umbilical cord, third trimester (principal); Z3A.35 35 weeks gestation of pregnancy; R80.9 Proteinuria, unspecified
CPT/HCPCS: 59025